=== PATIENT | male | born 1975 | race Caucasian/White ===

== ENCOUNTER 2016-12-01 21:15 | Emergency (ER) | payer BC ==
[2016-12-01] MEDS ORDERED: DOXYcycline CAP(*) 100 MG PO ONE (21:41)
--- NOTE | 2016-12-01 21:51 | UC ---
General HPI - HPI Summary HPI Summary: TICK BITE ON RIGHT BACK. FOUND TODAY. NO FEVER. NO RED LEMON NO JOINT PAIN. 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 - History of Current Complaint Chief Complaint: Sandeep Stated Complaint: TICK Time Seen by Provider: 12/01/16 21:33 Hx Obtained From: Patient Onset/Duration: Sudden Onset, Lasting Hours Onset Severity: Mild Current Severity: Mild Associated Signs & Symptoms: Negative: Abdominal Pain, Chest Pain, Dizziness, Fever, Trauma, Weakness - Allergy/Home Medications Allergies/Adverse Reactions: Allergies Allergy/AdvReac Type Severity Reaction Status Date / Time No Known Allergies Allergy Verified 12/01/16 21:21 PMH/Surg Hx/FS Hx/Imm Hx Previously Healthy: Yes - Surgical History Surgical History: None - Family History Known Family History: Negative: Blood Disorder - Social History Occupation: Employed Full-time Lives: With Family Alcohol Use: Daily Alcohol Amount: "couple beers/night" Substance Use Type: None Smoking Status (MU): Former Smoker Type: Smokeless Tobacco - Immunization History Most Recent Influenza Vaccination: none 2016 Review of Systems Constitutional: Negative Skin: Rash Eyes: Negative ENT: Negative Respiratory: Negative Cardiovascular: Negative Gastrointestinal: Negative Genitourinary: Negative Motor: Negative Neurovascular: Negative Musculoskeletal: Negative Neurological: Negative Psychological: Negative Is Patient Immunocompromised?: No All Other Systems Reviewed And Are Negative: Yes Physical Exam Triage Information Reviewed: Yes Appearance: Well-Appearing, No Pain Distress, Well-Nourished Vital Signs: Initial Vital Signs Temp 100 F 12/01/16 21:22 Pulse 105 12/01/16 21:22 Resp 18 12/01/16 21:22 Pulse Ox 100 12/01/16 21:22 Vital Signs Reviewed: Yes Eye Exam: Normal ENT Exam: Normal ENT: Positive: Normal ENT inspection, Hearing grossly normal, TMs normal Dental Exam: Normal Neck exam: Normal Neck: Positive: Supple, Nontender, No Lymphadenopathy Respiratory Exam: Normal Respiratory: Positive: Chest non-tender, Lungs clear, Normal breath sounds, No respiratory distress, No accessory muscle use Cardiovascular Exam: Normal Cardiovascular: Positive: RRR, No Murmur, Pulses Normal Abdominal Exam: Normal Musculoskeletal Exam: Normal Musculoskeletal: Positive: Strength Intact, ROM Intact Neurological Exam: Normal Psychological Exam: Normal Skin: Positive: rashes - 0.3CM X0.3CM ERRYTHEMA RIGHT MID BACK Course/Dx - Differential Dx - Multi-Symptom Differential Diagnoses: Metabolic Abnormality Provider Diagnoses: TICK BITE PROPHYLAXIS Discharge - Discharge Plan Condition: Stable Disposition: HOME Prescriptions: DOXYcycline CAP(*) [DOXYcycline 100MG CAP(*)] 100 mg PO BID #4 cap Patient Education Materials: Lyme Disease (ED), Tick Bite (ED) Referrals: Mauro Spence MD [Primary Care Provider] - Images Front/Back of Body, Lg (Wise): 1 - 0.3CM X0.3CM ERRYTHEMA RIGHT MID BACK
== END 2016-12-01 21:48 | disposition home or self-care (01) ==
LOC: UCCORT 21:15
DX: S20.461A Insect bite (nonvenomous) of right back wall of thorax, initial encounter (principal); W57.XXXA Bitten or stung by nonvenomous insect and other nonvenomous arthropods, initial encounter; Y93.9 Activity, unspecified; Y92.9 Unspecified place or not applicable; Y99.9 Unspecified external cause status
CPT/HCPCS: 99212; A9270-GY; G0463

== ENCOUNTER 2017-06-29 09:00 | Emergency (ER) | payer BC ==
--- NOTE | 2017-06-29 10:49 | UC ---
Skin Complaint HPI - HPI Summary HPI Summary: Pt c/o getting stung by "bee" 2 days ago on abdomen and now c/o worsening erythema and tenderness. Pt has not taken any NSAIDS or antihistamines. - History of Current Complaint Chief Complaint: UCSkin Time Seen by Provider: 06/29/17 09:48 Stated Complaint: SKIN COMPLAINT-BEE STING Hx Obtained From: Patient Onset/Duration: Gradual Onset, Lasting Days, Still Present Skin Exposure Onset/Duration: Days Ago Timing: Constant Onset Severity: Mild Current Severity: Moderate Pain Intensity: 0 Pain Scale Used: 0-10 Numeric Location: Discrete - left lower abdomen Character: Pruritus, Hives, Redness, Painful Aggravating Factor(s): Touch Alleviating Factor(s): Unknown Associated Signs & Symptoms: Positive: Rash, Tenderness Related History: Insect Bite/Sting - Allergy/Home Medications Allergies/Adverse Reactions: Allergies Allergy/AdvReac Type Severity Reaction Status Date / Time No Known Allergies Allergy Verified 06/29/17 09:16 Home Medications: Home Medications diPHENhydraMINE 2% CREAM(NF) [Benadryl 2% CREAM (NF)] 1 applic TOPICAL BID PRN 06/29/17 [History Confirmed 06/29/17] Review of Systems Constitutional: Negative Skin: Rash Eyes: Negative ENT: Negative Respiratory: Negative Cardiovascular: Negative Gastrointestinal: Negative Genitourinary: Negative Motor: Negative Neurovascular: Negative Musculoskeletal: Negative Neurological: Negative Psychological: Negative Is Patient Immunocompromised?: No All Other Systems Reviewed And Are Negative: Yes PMH/Surg Hx/FS Hx/Imm Hx Previously Healthy: Yes - Surgical History Surgical History: None - Family History Known Family History: Negative: Blood Disorder - Social History Occupation: Employed Full-time Lives: With Family Alcohol Use: Daily Alcohol Amount: "couple beers/night" Substance Use Type: None Smoking Status (MU): Smoker, Current Status Unknown Type: Smokeless Tobacco Amount Used/How Often: 1 can q2 days Have You Smoked in the Last Year: Yes - Immunization History Most Recent Influenza Vaccination: none 2016 Physical Exam Triage Information Reviewed: Yes Appearance: Well-Appearing Vital Signs: Initial Vital Signs Temp 98.7 F 06/29/17 09:17 Pulse 113 06/29/17 09:17 Resp 18 06/29/17 09:17 Pulse Ox 100 06/29/17 09:17 Vital Signs Reviewed: Yes Eye Exam: Normal ENT Exam: Normal Neck exam: Normal Respiratory: Positive: No respiratory distress Cardiovascular Exam: Normal Musculoskeletal Exam: Normal Neurological Exam: Normal Psychological Exam: Normal Skin Exam: Other - large circular erythematous, slightly raised, area left lower abdomen, ~ 10cm X 5 cm. Course/Dx - Differential Diagnoses - Skin Complaint Differential Diagnoses: Contact Dermatitis, Urticaria - Diagnoses Provider Diagnoses: localized allergic reaction. cellulitis Discharge - Sign-Out/Discharge Documenting (check all that apply): Discharge/Admit/Transfer - Discharge Plan Condition: Stable Disposition: HOME Prescriptions: Cephalexin CAP* [Keflex 500 CAP*] 500 mg PO Q12H #10 cap Cetirizine* [ZyrTEC 10 MG TAB*] 10 mg PO DAILY #5 tab Patient Education Materials: Urticaria (ED), Insect Bite or Sting (ED) Ref[place]: [facility] [[place]] No Primary Care Phys,NOPCP [Primary Care Provider] - - Billing Disposition and Condition Condition: STABLE Disposition: HOME
== END 2017-06-29 10:03 | disposition home or self-care (01) ==
LOC: UCCORT 09:00
DX: F17.220 Nicotine dependence, chewing tobacco, uncomplicated (principal); T63.444A Toxic effect of venom of bees, undetermined, initial encounter; L03.311 Cellulitis of abdominal wall; Y92.9 Unspecified place or not applicable
CPT/HCPCS: 99212; G0463